=== PATIENT | female | born 1975 | race Caucasian/White ===

== ENCOUNTER → 2017-01-31 | Day surgery (SDC) | payer OTHER ==
[~2017-01-31] VITALS: Ht 170.2 cm; Wt 123.8 kg
[~2017-01-31] MED LIST: COLACE 100MG C100 MG PO; ESTRADIOL0.5 MG PO; IBUPROFEN600 MG PO; NORCO 5-325 TA1 EACH PO; PERCOCET 10-321 EACH PO
[2017-01-31 08:05] LABS: HEMOGLOBIN 11.9 gm/dl (12.3-15.3); RED BLOOD COUNT 3.99 M/UL (4.00-5.10); WHITE BLOOD COUNT 8.9 K/UL (4.5-11.0)
== END | disposition home or self-care (01) ==
LOC: OR 07:42
PROVIDERS: Obstetrics & Gynecology
PROC: 0UDB8ZZ Extraction of Endometrium, Via Natural or Artificial Opening Endoscopic (ICD-10-PCS; principal; 2017-01-31 13:45)
DX: N88.2 Stricture and stenosis of cervix uteri (principal); N93.9 Abnormal uterine and vaginal bleeding, unspecified; I10 Essential (primary) hypertension; E03.9 Hypothyroidism, unspecified; E66.9 Obesity, unspecified; Z68.41 Body mass index [BMI] 40.0-44.9, adult; Z90.49 Acquired absence of other specified parts of digestive tract
CPT/HCPCS: 36415; 81001; 84703; 85025; J1885; J2250; J2405; J2795; J7030; J7120

== ENCOUNTER → 2017-02-08 | Outpatient (CLI) | payer OTHER ==
[2017-02-08 11:15] LABS: HEMOGLOBIN 11.5 gm/dl (12.3-15.3); RED BLOOD COUNT 3.86 M/UL (4.00-5.10); WHITE BLOOD COUNT 7.8 K/UL (4.5-11.0)
== END ==
LOC: OPSV2 09:50
PROVIDERS: Obstetrics & Gynecology
DX: Z01.812 Encounter for preprocedural laboratory examination (principal); N92.6 Irregular menstruation, unspecified; Z88.0 Allergy status to penicillin
CPT/HCPCS: 36415; 81001; 85025

== ENCOUNTER 2017-02-14 07:48 | Inpatient (IN) | payer OTHER ==
[~2017-02-14] VITALS: Ht 170.2 cm; Wt 123.8 kg
[~2017-02-14 07:48] MED LIST changes: -COLACE 100MG C100 MG PO; -ESTRADIOL0.5 MG PO; -IBUPROFEN600 MG PO; -PERCOCET 10-321 EACH PO
[2017-02-15 06:35] LABS: HEMOGLOBIN 10.6 gm/dl (12.3-15.3)
[2017-02-15] MEDS ORDERED: IBUPROFEN600 MG PO (10:26)
[2017-02-15] MEDS ORDERED: COLACE 100MG C100 MG PO (10:26)
[2017-02-15] MEDS ORDERED: ESTRADIOL0.5 MG PO (10:27)
[2017-02-15] MEDS ORDERED: PERCOCET 10-321 EACH PO (10:29)
== END 2017-02-15 16:41 | disposition home or self-care (01) | DRG 742 ==
LOC: ZOBSOF 07:48 → M/S 15:15
PROVIDERS: ADMIT Obstetrics & Gynecology
PROC: 0UTC0ZZ Resection of Cervix, Open Approach (ICD-10-PCS; 2017-02-14)
PROC: 0UT20ZZ Resection of Bilateral Ovaries, Open Approach (ICD-10-PCS; 2017-02-14)
PROC: 0UT70ZZ Resection of Bilateral Fallopian Tubes, Open Approach (ICD-10-PCS; 2017-02-14)
PROC: 0UN90ZZ Release Uterus, Open Approach (ICD-10-PCS; 2017-02-14)
PROC: 0JNC0ZZ Release Pelvic Region Subcutaneous Tissue and Fascia, Open Approach (ICD-10-PCS; 2017-02-14)
PROC: 0UT90ZZ Resection of Uterus, Open Approach (ICD-10-PCS; principal; 2017-02-14 10:30)
DX: N93.8 Other specified abnormal uterine and vaginal bleeding (principal); Z68.41 Body mass index [BMI] 40.0-44.9, adult; N94.6 Dysmenorrhea, unspecified; N88.2 Stricture and stenosis of cervix uteri; N92.6 Irregular menstruation, unspecified; N73.6 Female pelvic peritoneal adhesions (postinfective); I10 Essential (primary) hypertension; E03.9 Hypothyroidism, unspecified; E66.01 Morbid (severe) obesity due to excess calories; Z98.51 Tubal ligation status; Z79.899 Other long term (current) drug therapy; Z88.0 Allergy status to penicillin; Z98.890 Other specified postprocedural states; Z83.3 Family history of diabetes mellitus; Z82.49 Family history of ischemic heart disease and other diseases of the circulatory system
CPT/HCPCS: 36415; 85014; 85018; J1100; J1580; J1885; J2270; J2405; J2550; J2710; J2795; J3010; J7030; J7050; J7120

== ENCOUNTER → 2020-09-16 | Outpatient (CLI) | payer OTHER ==
[~2020-09-16] MED LIST changes: +CLEOCIN HCL300 MG PO; +COLACE 100MG C100 MG PO; +DEX4 GLUCOSE BIT1 GM PO; +ESTRADIOL0.5 MG PO; +HUMALOG 10100 UNITS/ SC; +IBUPROFEN600 MG PO; +LANTUS INS100 UTS/M1 SC; +LEVEMIR100 UNIT/1 SQ; +PERCOCET 10-321 EACH PO; +POTASSIUM CHLO20 ME1 PO; +ZOFRAN4 MG PO; +ZYRTEC10 M3 PO
== END ==
LOC: KOH-I 13:55
DX: M79.602 Pain in left arm (principal); M25.512 Pain in left shoulder
CPT/HCPCS: 73030; 73060

== ENCOUNTER 2021-07-05 10:38 | Emergency (ER) | payer OTHER ==
[~2021-07-05] VITALS: Ht 170.2 cm; Wt 117.9 kg
[2021-07-05 11:48] LABS: RED BLOOD COUNT 4.63 M/UL (4.00-5.10); WHITE BLOOD COUNT 4.1 K/UL (4.5-11.0)
[2021-07-05 12:13] LABS: BUN/CREATININE RATIO 27 (0-10)
[2021-07-05] MEDS ORDERED: TESSALON PERLE100 MG PO (12:59)
== END 2021-07-05 13:46 | disposition home or self-care (01) ==
LOC: ER1 10:38
PROVIDERS: Nurse Practitioner
DX: U07.1 COVID-19 (principal); J12.82 Pneumonia due to coronavirus disease 2019; E11.9 Type 2 diabetes mellitus without complications; I10 Essential (primary) hypertension; E78.5 Hyperlipidemia, unspecified; Z90.710 Acquired absence of both cervix and uterus; Z88.0 Allergy status to penicillin; Z23 Encounter for immunization
CPT/HCPCS: 71045; 80053; 82550; 82553; 83874; 84484; 85025; 93005; 96374; 96375; 99285; J1885; J2405; M0243

== ENCOUNTER 2021-07-08 11:50 | Emergency (ER) | payer OTHER ==
[~2021-07-08 11:50] MED LIST changes: +TESSALON PERLE100 MG PO
[2021-07-08 12:48] LABS: HEMOGLOBIN 14.3 gm/dl (12.3-15.3); RED BLOOD COUNT 4.72 M/UL (4.00-5.10); WHITE BLOOD COUNT 4.9 K/UL (4.5-11.0)
[2021-07-08 13:18] LABS: BUN/CREATININE RATIO 29 (0-10)
== END 2021-07-08 14:07 | disposition home or self-care (01) ==
LOC: ER1 11:50
PROVIDERS: Emergency Medicine
DX: U07.1 COVID-19 (principal); J12.82 Pneumonia due to coronavirus disease 2019
CPT/HCPCS: 80053; 84484; 85025; 85610; 85730; 86140; 93005; 99285; Q9967

== ENCOUNTER 2021-08-29 11:21 | Emergency (ER) | payer OTHER ==
[2021-08-29] MEDS ORDERED: IBUPROFEN600 MG PO (13:36)
== END 2021-08-29 13:53 | disposition home or self-care (01) ==
LOC: ER1 11:21
DX: H11.32 Conjunctival hemorrhage, left eye (principal); S05.02XA Injury of conjunctiva and corneal abrasion without foreign body, left eye, initial encounter; Y08.89XA Assault by other specified means, initial encounter; I10 Essential (primary) hypertension
CPT/HCPCS: 99283